=== PATIENT | female | born 1930 | race Caucasian/White ===

== ENCOUNTER 2016-11-13 06:10 | Day surgery (SDC) | payer OTHER ==
[~2016-11-13] VITALS: Ht 160 cm; Wt 51.0 kg
[2016-11-13] VITALS (10 sets, daily range): BP systolic 143–168; BP diastolic 68–78; PULSE 62–104; RESP 18–43; Ht 160 cm; Wt 51.0 kg
[2016-11-13] MEDS ORDERED: METO-429 PO (08:59)
[2016-11-13] MEDS ORDERED: LEVO75TA5 PO (08:59)
[2016-11-13] MEDS ORDERED: OLAN2.5T4 PO (09:00)
[2016-11-13] MEDS ORDERED: CALC500T91 PO (09:00)
[2016-11-13] MEDS ORDERED: SIMV20TA PO (09:00)
[2016-11-13] MEDS ORDERED: FLUT16SP17 NASAL (09:01)
[2016-11-13] MEDS ORDERED: ASCO500C7 PO (09:01)
[2016-11-13] MEDS ORDERED: ASPI81TA3 PO (09:01)
[2016-11-13] MEDS ORDERED: CHOL500051 PO (09:02)
[2016-11-13] MEDS ORDERED: NYST1000 PO (09:04)
[2016-11-13] MEDS ORDERED: BUPIVACAINE 0.25% (MPF) 30 ML INJ ONE (11:14)
--- NOTE | 2016-11-13 11:20 | HPN ---
Date/Time of Note Date/Time of Note DATE: 11/13/16 TIME: 11:19 Interval H&P Admission Note Pt. seen H&P reviewed: No system changes SIDNEY SANDERS MD Nov 13, 2016 11:19
[2016-11-13] MEDS ORDERED: MIDAZOLAM 1 MG/ML 2 ML INJ ONE (11:28)
[2016-11-13] MEDS ORDERED: FENTAnyl 50 MCG/ML VIAL ONE (11:28)
[2016-11-13] MEDS ORDERED: LIDOCAINE 2% (SDV) 5 ML INJ ONE (12:44)
[2016-11-13] MEDS ORDERED: ONDANSETRON 4 MG INJ ONE (12:44)
[2016-11-13] MEDS ORDERED: ETOMIDATE 20 MG INJ ONE (12:44)
--- NOTE | 2016-11-13 12:46 | OPR ---
Date/Time of Note Date/Time of Note DATE: 11/13/16 TIME: 12:40 Operative Report Procedure Date: Nov 13, 2016 Preoperative Diagnosis Left breast mass Postoperative Diagnosis Left breast mass Operation Performed Excisional biopsy of left breast mass with wire needle localization Surgeon: SIDNEY SANDERS MD Anesthesia Type: general Anesthesiologist: SILVIA RODRIGUEZ MD Estimated Blood Loss: minimal Transfusion Required: no Specimens 1. Left breast mass excisional biopsy with wire needle localization 2. Additional medial 12:00 excision Grafts/Implants: none Complications: no Pt Condition Post Procedure: stable Disposition: PACU Indications Patient is an 86-year-old female who presented to the office with a biopsy- proven atypical ductal hyperplasia of the left breast. The patient was scheduled for excisional biopsy under wire needle localization for definitive pathological diagnosis and secondary to the risk of malignant transformation of the atypical ductal hyperplasia. All risks and benefits of the procedure including, but not limited to: Wound infection, excessive bleeding, postoperative seroma/hematoma formation, mass recurrence, possible need for further surgery, etc. were explained to the patient and her daughter in detail. They understood and wished to proceed with the procedure. Informed consent was obtained. Operative\Procedure Findings Entire wire needle located within specimen. Firm suspicious lesion in medial aspect also excised. Procedure Description The patient was brought to the operating room and placed supine on the operating table. Bilateral sequential compression devices were placed on both lower extremities. A dose of broad-spectrum perioperative intravenous antibiotics was given. After the induction of smooth general anesthesia the patient's left breast and chest wall were prepped and draped in standard surgical fashion. An incision was made between the 1:00 and 3:00 locations of the left breast just medial to the wire needle entry point using a 15 blade scalpel. The skin was anesthetized with 0.25% Marcaine prior to incision. Incision was carried down through the skin and dermis into breast tissue. Flaps were raised and circumferential dissection was done towards the 12 o' clock position. The excisional biopsy specimen was then transected at its base including the wire needle in its entirety. Marking sutures were used to rita the medial and inferior aspects. The specimen was passed off the field and sent for intraoperative radiological confirmation which showed the needle in its entirety and biopsy clip within the specimen. On palpation of the excisional cavity there was a firm lesion palpated just medial to the excisional specimen in the 12:00 area. Circumferential dissection was done of this lesion and it was transected and passed off the field as specimen. Hemostasis was inspected for and noted to be adequate. The wound cavity was irrigated with sterile water and the irrigant returned clear. The wound was then closed in layers using 3-0 Vicryl sutures for the deep layer and dermis. The skin was reapproximated using 4-0 Monocryl suture in running subcuticular fashion. Further local anesthesia was applied on the skin of the incision site. Incision was cleaned and Dermabond was applied as well as a sports bra. The patient was awoken from anesthesia and transferred to the recovery room in stable condition. All counts were correct at the end of the case 2. SIDNEY SANDERS MD Nov 13, 2016 12:45
[2016-11-13] MEDS ORDERED: CEFAZOLIN 1 GM INJ ONE (12:47)
[2016-11-13] MEDS ORDERED: KETOROLAC 30 MG INJ IV PRN (13:00)
[2016-11-13] MEDS ORDERED: ONDANSETRON 4 MG INJ IV PRN (13:00)
[2016-11-13] MEDS ORDERED: IBUPROFEN 600 MG TAB PO PRN (13:00)
[2016-11-13] MEDS ORDERED: CLINDAMYCIN 900 MG/D5W (PMX) 50 ML IVPB SCH (14:00)
== END 2016-11-13 14:44 | disposition home or self-care (01) ==
LOC: SDS 06:10
PROVIDERS: ATTEND Surgery
DX: D05.12 Intraductal carcinoma in situ of left breast (principal); E03.9 Hypothyroidism, unspecified; E78.5 Hyperlipidemia, unspecified; Z85.038 Personal history of other malignant neoplasm of large intestine
CPT/HCPCS: 19120; 88307; J0690; J2250; J2405; J3010